=== PATIENT | female | born 1980 | race Caucasian/White ===

== ENCOUNTER → 2020-01-01 12:35 | Outpatient (BNVA) | payer OTHER, SELFPAY | PROVIDERS: PCP Internal Medicine; Referring Provider Internal Medicine; Visit Provider Nurse Practitioner | DX: Z76.89 Persons encountering health services in other specified circumstances (principal) | CPT/HCPCS: 99213 ==

== ENCOUNTER 2020-01-10 08:19 | Emergency (ER) | payer OTHER, SELFPAY ==
[2020-01-10 08:41] VITALS: BP 115/68; PULSE 70; RESP 16; TEMP 36.1; O2SAT 98; BMI 34.3
--- NOTE | 2020-01-10 09:15 | ED_ITS ---
HPI - Extremity Injury (Lower) General Chief Complaint: Extremity Injury, Lower Stated Complaint: TOE NAIL PAIN Time Seen by Provider: 01/10/20 08:49 Source: patient Mode of arrival: ambulatory History of Present Illness HPI Narrative: 40-year-old female presented to ED complaining of right great toenail pain x1 week. Reports great toenail fell off months ago after foot injury, nail is now growing back, however believes growing into skin/ingrown toenail. Admits pain worsening with slight drainage. Reports has podiatry appointment next week, however could not handle pain. Denies fever, chills, recent injury/falls complaint: foot injury Related Data Home Medications Medication Instructions Recorded Confirmed fluticasone propionate 50 INTRANASAL 12/29/19 01/01/20 mcg/actuation nasal spray,suspension loratadine 10 mg tablet 10 mg PO DAILY 12/29/19 01/01/20 Previous Rx's Medication Instructions Recorded cimetidine 200 mg tablet 400 mg PO BEDTIME #30 tab 01/01/20 doxycycline hyclate 100 mg capsule 100 mg PO DAILY 10 Days #10 cap 01/01/20 imipramine HCl 10 mg tablet 10 mg PO BEDTIME 30 Days #30 tab 01/01/20 loratadine 10 mg tablet 10 mg PO DAILY 30 Days #30 tab 01/01/20 acetaminophen-codeine 1 tab PO Q8H PRN #9 tab 01/10/20 Allergies Allergy/AdvReac Type Severity Reaction Status Date / Time No Known Allergies Allergy Verified 12/29/19 07:27 Review of Systems Review of Systems: Constitutional: No Weight loss, No Fever, No Chills Musculoskeletal: + great toe pain joint pain, No Myalgias, + Joint Swelling Skin: No Skin Lesions, No rash Neuro: No Weakness, No Numbness Yes all other systems are reviewed and are negative PMFSH Past Medical History Attestation statement: The following information was validated with the patient. Surgical History History of dislocation of hip History of laparoscopic cholecystectomy History of loop electrical excision procedure (LEEP) History of salpingo-oophorectomy History of tubal ligation Family History Family History Father No problems noted. Mother Myocardial infarction Paternal Uncle Colon cancer Maternal Uncle ALS (amyotrophic lateral sclerosis) Social History Social History (Updated 01/01/20 @ 12:38 by DENAE Luu) Alcohol intake: current Alcohol intake frequency: does not drink Smoking Status: Never smoker Advance Directives: Yes Advance Directives Information Provided: Yes Advance Directives on File: No Physical Exam Vital Signs: Vital Signs: Vital Signs Temp Pulse Resp BP Pulse Ox 01/10/20 08:41 97.0 F 70 16 115/68 98 Body Mass Index 34.3 Const: General: cooperative and healthy appearing Orientation/consciousness: patient oriented x3 Limitations: no limitations HENMT: Head: Yes normal to inspection Ears: hearing grossly normal bilaterally General nose exam: Normal external nose present Face and sinus: Yes normal facial exam Eyes: General: appearance normal, both eyes and all related structures EOM: EOMs intact bilaterally Neck: Neck: Yes normal visual inspection Resp: Effort & Inspection: normal respiratory effort Cardio: Peripheral pulses: Peripheral pulses 2+ throughout Skin: Rashes: no rashes Wounds: no wounds Neuro: General: patient oriented x3 Extrem: Other: + ingrown toenail to medial aspect right great toe. No surrounding erythema / cellulitis, no drainage, no swelling. Tender to palpation General: Yes normal to inspection MDM - Extremity Injury (Lower) MDM Narrative Medical decision making narrative: discussed with patient we can cut out ingrown toenail in the ED, or wait until she has podiatry appointment next weeek. With shared decision-making she would rather wait until appointment, will give pain medication / work note to get her to appointment. Worrisome signs and symptoms and strict return precautions discussed. Patient in agreement with plan Discharge Plan Discharge Clinical Impression: Ingrown nail Patient Disposition: Home, Self-Care Instructions: Ingrown Nail (ED) Additional Instructions: YOU HAVE AN INGROWN TOENAIL TYLENOL WITH CODEINE IS AN OPIATE PAIN MEDICATION, TAKE WITH FOOD, AND ONLY WHEN PAIN IS SEVERE, WARM SOAKS ON HER TOE TAKE TYLENOL /MOTRIN AT HOME DO NOT EXCEED 4 G OF TYLENOL IN 1 DAY FOLLOW-UP WITH [facility]CROBIOLOGICAL LAB TECHNICIAN SCHEDULED IF PAIN BECOMES UNBEARABLE, AREA LOOKS INFECTED, IS RED, THERE IS PUS DRAINAGE, OR YOUR FEVER RETURN TO THE ED Prescriptions: New acetaminophen-codeine 300-30 mg tablet 1 tab PO Q8H PRN (Reason: pain) Qty: 9 RF: 0 No Action loratadine 10 mg tablet 10 mg PO DAILY RF: 0 fluticasone propionate 50 mcg/actuation spray,suspension intranasal RF: 0 imipramine HCl 10 mg tablet 10 mg PO BEDTIME 30 Days Qty: 30 RF: 3 loratadine [Claritin] 10 mg tablet 10 mg PO DAILY 30 Days Qty: 30 RF: 0 doxycycline hyclate 100 mg capsule 100 mg PO DAILY 10 Days Qty: 10 RF: 0 cimetidine 200 mg tablet 400 mg PO BEDTIME Qty: 30 RF: 3 Referrals: Marlon Mishra [Physician] - 2 days Stand Alone Forms: Work/School Release
== END 2020-01-10 09:26 | disposition home or self-care (01) ==
PROVIDERS: Emergency Provider Emergency Medicine; PCP Internal Medicine
DX: L60.0 Ingrowing nail (principal); M79.671 Pain in right foot; Z79.899 Other long term (current) drug therapy
CPT/HCPCS: 99283

== ENCOUNTER 2020-01-29 08:38 | Outpatient (REF) | payer OTHER, SELFPAY ==
--- NOTE | 2020-01-29 08:40 | US_ITS ---
EXAMINATION: US ABDOMEN LIMITED CLINICAL INFORMATION: Fatty change of liver, not elsewhere classified. COMPARISON: Ultrasound abdomen complete 08/23/2019. Ultrasound abdomen was elastography 04/17/2019. CT abdomen and pelvis 09/24/2009. TECHNIQUE: Real-time imaging of the right upper quadrant abdominal viscera. FINDINGS: PANCREAS: Normal. LIVER: The liver is normal in size. The liver contour is normal. Mild increased hepatic echogenicity. No focal hepatic lesion. There is no intrahepatic biliary duct dilatation seen. GALLBLADDER: Surgically absent. COMMON BILE DUCT: Normal in caliber measuring 0.7 cm in diameter. RIGHT KIDNEY: Normal. No hydronephrosis. No renal calculi or focal parenchymal lesions. The kidney measures 10.6 cm in maximum dimension. FREE FLUID: None. US/US abdomen limited IMPRESSION: Mild hepatic steatosis minimally increased since the previous study. The rest of the abdominal ultrasound is unremarkable.
== END 2020-01-29 08:39 | disposition home or self-care (01) ==
LOC: HO.US 08:38
PROVIDERS: Visit Provider Nurse Practitioner
DX: K76.0 Fatty (change of) liver, not elsewhere classified (principal)
CPT/HCPCS: 76705

== ENCOUNTER 2020-02-26 15:57 | Outpatient (REF) | payer OTHER, SELFPAY | END 2020-02-26 15:58 | disposition home or self-care (01) | LOC: HO.LAB 15:57 | PROVIDERS: PCP Internal Medicine; Visit Provider Internal Medicine | DX: Z20.828 Contact with and (suspected) exposure to other viral communicable diseases (principal) | CPT/HCPCS: C9803; U0003 ==

== ENCOUNTER 2021-04-09 08:23 | Emergency (ER) | payer OTHER, SELFPAY ==
[2021-04-09 08:32] VITALS: BP 127/87; PULSE 88; RESP 19; TEMP 36.6; O2SAT 98; BMI 31.8
[2021-04-09 09:32] LABS: COVID-19 Test Positive (Negative); IDNOW Serial# 9DD0AD1C
[2021-04-09 09:33] LABS: IDNOW Serial# 55D5AD1C; Strep A Nucleic Acid Negative (Negative)
--- NOTE | 2021-04-09 09:55 | ED_ITS ---
HPI - URI/Sore Throat General Chief Complaint: Upper Respiratory Symptoms Stated Complaint: sore throat unable to speak Time Seen by Provider: 04/09/21 09:38 Source: patient Mode of arrival: ambulatory Limitations: no limitations History of Present Illness HPI Narrative: History old female presents to ED for sore throat, body aches, headaches, and chills a couple of days. Patient states she is not vaccinated against COVID. Patient states has similar symptoms. Patient states no chest pain or shortness of breath Related Data Home Medications Medication Instructions Recorded Confirmed fluticasone propionate 50 INTRANASAL 12/29/19 01/01/20 mcg/actuation nasal spray,suspension loratadine 10 mg tablet 10 mg PO DAILY 12/29/19 01/01/20 pantoprazole 20 mg tablet,delayed 20 mg PO DAILY 01/22/20 01/22/20 release Previous Rx's Medication Instructions Recorded cimetidine 200 mg tablet 400 mg PO BEDTIME #30 tab 01/01/20 imipramine HCl 10 mg tablet 10 mg PO BEDTIME 30 Days #30 tab 01/01/20 acetaminophen 300 mg-codeine 30 mg 1 tab PO Q8H PRN #9 tab 01/10/20 tablet Allergies Allergy/AdvReac Type Severity Reaction Status Date / Time No Known Allergies Allergy Verified 12/29/19 07:27 Review of Systems Review of Systems: Patient states only sore throat, body aches, headache, and chills. Patient not vaccinated Yes all other systems are reviewed and are negative [facility] Past Medical History Surgical History History of colonoscopy History of dislocation of hip History of laparoscopic cholecystectomy History of loop electrical excision procedure (LEEP) History of salpingo-oophorectomy History of tubal ligation Hx of endoscopy Family History Family History (Updated 01/22/20 @ 13:47 by Venice Robledo CMA) Father No problems noted. Mother Myocardial infarction Paternal Uncle Colon cancer Maternal Uncle ALS (amyotrophic lateral sclerosis) Social History Social History (Updated 01/22/20 @ 13:47 by Venice Robledo CMA) Alcohol intake: unknown Advance Directives: No Advance Directives Information Provided: Yes Patient : No Physical Exam Vital Signs: Vital Signs: Last Vital Signs Temp 98 F 04/09/21 08:32 Pulse 88 04/09/21 08:32 Resp 19 04/09/21 08:32 BP 127/87 04/09/21 08:32 Pulse Ox 98 04/09/21 08:32 BMI result Body Mass Index 31.8 Const: General: cooperative, healthy appearing, comfortable, no acute distress, well developed and alert Orientation/consciousness: patient oriented x3 HENMT: Head: Yes normal to inspection, Yes No palpable skull fracture present, Yes normocephalic and Yes atraumatic Ears: hearing grossly normal bilaterally, external ears normal, TM's normal bilaterally, EAC's normal, mastoids normal and no periauricular adenopathy Throat: Yes posterior oropharynx normal, Yes tonsils normal and Yes uvula midline Eyes: General: appearance normal, both eyes and all related structures Neck: Neck: Yes normal visual inspection, Yes full ROM, Yes no lymphadenopathy, Yes no meningeal signs, Yes trachea midline, Yes supple, No anterior neck swelling and No tender Chest: Chest palpation & inspection: normal inspection of the chest and normal palpation of entire chest wall Resp: Effort & Inspection: normal respiratory effort and able to speak in complete sentences Auscultation: clear to auscultation bilaterally Cardio: Jugular venous distension: no JVD Heart sounds: S1 normal heart sound present and S2 normal heart sound present GI: Inspection: Yes normal to inspection and No abdominal wall ecchymosis Palpation (GI): Soft to palpation, not firm, nontender, no guarding and not rigid : General: No CVA tenderness and Yes no CVA tenderness Back/Spine/Pelvis: Back: no CVA tenderness, No CVA tenderness and No back te nderness Skin: General skin exam: no rashes or lesions noted and elasticity normal Neuro: General: patient oriented x3, gait normal, no meningeal signs and CN's II-XI intact bilaterally Cranial nerves: Yes CN's II-XII intact bilaterally Extrem: General: Yes normal to inspection and Yes full ROM Psych: Appearance: grossly normal, well kempt and not disheveled Course Course Course Narrative: Patient will be tested for COVID and strep Reevaluation(s) Reevaluation #1: Strep test came back negative. COVID swab positive. Patient educated on respiratory distress and informed to return to the ED she has a Time: 09:59 MDM - URI/Sore Throat MDM Narrative Medical decision making narrative: COVID Lab Data Labs: Lab Results 04/09/21 04/09/21 Range/Units 09:03 09:06 COVID-19 (NICOLE) Positive A (Negative) COVID-19 Clin Com See Note S. pyogenes GrpA RJ Negative (Negative) Discharge Plan Discharge Clinical Impression: COVID-19 Patient Disposition: Home, Self-Care Instructions: COVID-19 (Coronavirus Disease 2019) (ED) Additional Instructions: You tested positive for COVID. Recommend self quarantine. Return to the ED for any chest pain, shortness of breath, weakness, dizziness, or any other concerning symptoms. Follow-up with primary care provider. Prescriptions: No Action acetaminophen-codeine 300-30 mg tablet 1 tab PO Q8H PRN (Reason: pain) Qty: 9 RF: 0 loratadine 10 mg tablet 10 mg PO DAILY RF: 0 fluticasone propionate 50 mcg/actuation spray,suspension intranasal RF: 0 imipramine HCl 10 mg tablet 10 mg PO BEDTIME 30 Days Qty: 30 RF: 3 cimetidine 200 mg tablet 400 mg PO BEDTIME Qty: 30 RF: 3 pantoprazole 20 mg tablet,delayed release (DR/EC) 20 mg PO DAILY RF: 0 Stand Alone Forms: Work/School Release Interventions: ED Discharge Assessment Last Done: 04/09/21 10:38 Discharge Date/Time: 04/09/21 10:39 Print Language: [place]
== END 2021-04-09 10:39 | disposition home or self-care (01) ==
PROVIDERS: Emergency Provider Emergency Medicine; PCP Internal Medicine
DX: U07.1 COVID-19 (principal)
CPT/HCPCS: 87635; 87651; 99283